=== PATIENT | female | born 1960 | race Caucasian/White ===

== ENCOUNTER → 2021-12-01 | Outpatient (CLI) | payer SELFPAY ==
[~2021-12-01] MED LIST: CYCL10 PO; HYDCHL25 PO; METO25ER PO; Percocet 5-3251 EACH PO; TERB250 PO; Zofran Odt4 MG SL
[2021-12-01 12:29] LABS: Creatinine Urine 34.9 mg/dL (27.00-270.00)
== END | disposition home or self-care (01) ==
LOC: LAB SHORT 08:59
PROVIDERS: Internal Medicine Endocrinology, Diabetes & Metabolism
DX: E26.9 Hyperaldosteronism, unspecified (principal)
CPT/HCPCS: 81050; 82570; 84300